=== PATIENT | male | born 1975 | race Asian ===

== ENCOUNTER 2020-07-21 20:46 | Emergency (ER) | payer MEDICAID ==
[~2020-07-21] VITALS: Ht 188 cm; Wt 122.5 kg
--- NOTE | 2020-07-21 20:49 | NUR ---
ER at bedside examining patient.
--- NOTE | 2020-07-21 20:50 | NUR ---
Patient to ER bed 2 to gown for evaluation. Side rails up, Stat EKG and place patient on precision honer and pulse ox.
--- NOTE | 2020-07-21 20:51 | NUR ---
Patient BIB by ALS/EMS. C/O Hypotension x today. Per reported, after dialysis treatmend removed 3 L, patient BP drop 64/58, Called 911, started IV NSS Bolus at the scene . A/O,X4, pale, dizziness, denies pain, on canula 2 L/min, BP 102/64, HR 72, RR 18.
[2020-07-21 20:55] VITALS: BP_SYST 135
--- NOTE | 2020-07-21 21:18 | NUR ---
Blood for labwork drawn from microbiology quality control technician. Patient tolerated well.
--- NOTE | 2020-07-21 21:20 | NUR ---
Swabs Covid-19 and MRSA and send to lab.
[2020-07-21 21:34] LABS: BASOPHILS # (AUTO) 0.1 K/uL (0.0-0.2); BASOPHILS % (AUTO) 0.8 % (0.0-2.0); EOSINOPHILS # (AUTO) 0.1 K/uL (0.0-0.4); EOSINOPHILS % (AUTO) 1.2 % (0.0-4.0); HEMOGLOBIN 11.5 g/dL (14.0-18.0); LYMPHOCYTES # (AUTO) 0.7 K/uL (1.0-5.5); LYMPHOCYTES % (AUTO) 8.1 % (20.5-51.5); MEAN CORPUSCULAR HEMOGLOBIN 29 pg (27-31); MEAN CORPUSCULAR HGB CONC 34 % (32-36); MEAN CORPUSCULAR VOLUME 87 fL (79.0-98.0); MONOCYTES # (AUTO) 0.8 K/uL (0.0-1.0); NEUTROPHILS # (AUTO) 6.8 K/uL (1.8-7.7); NEUTROPHILS % (AUTO) 80.9 % (40.0-70.0); PLATELET COUNT (AUTO) 189 K/uL (130-430); RED BLOOD CELL COUNT(AUTO) 3.93 MIL/uL (4.2-6.2); RED CELL DISTRIBUTION WIDTH 13.1 % (9.0-15.0); WHITE BLOOD COUNT (AUTO) 8.4 K/uL (4.8-10.8)
[2020-07-21] MEDS ORDERED: ACET325C5 PO (21:41)
[2020-07-21] MEDS ORDERED: CAT1PAT PO (21:41)
[2020-07-21 21:45] LABS: CREATININE 6.56 mg/dL (0.55-1.30); POTASSIUM 4.4 mmol/L (3.5-5.1)
[2020-07-21] MEDS ORDERED: PHE25 PO (21:46)
--- NOTE | 2020-07-21 21:47 | NUR ---
Medication reconciliation completed with information provided by facility. Any prior medication reconciliation on file was reviewed and corrected.
[2020-07-21 21:54] LABS: ALBUMIN 2.5 g/dL (3.4-4.8)
[2020-07-21 22:30] LABS: INR 1.1 (0.80-1.20); PROTHROMBIN TIME 11.1 SECS (9.5-12.5)
--- NOTE | 2020-07-21 23:04 | NUR ---
Dr. Omer at bedside to explain treatment plan.
--- NOTE | 2020-07-21 23:10 | NUR ---
Patient signed AMA.
--- NOTE | 2020-07-21 23:42 | NUR ---
Blood for labwork drawn from phlebotmist. Patient tolerated well.
[2020-07-22 00:25] VITALS: BP_SYST 126
--- NOTE | 2020-07-22 00:35 | NUR ---
Dr. Omer called and spoke with patient about Troponin level and recommended patient to come back to ER.
== END 2020-07-21 23:10 | disposition left against medical advice (07) ==
LOC: SED 20:46
DX: I10 Essential (primary) hypertension (principal); R77.8 Other specified abnormalities of plasma proteins; Z79.899 Other long term (current) drug therapy; Z20.828 Contact with and (suspected) exposure to other viral communicable diseases
CPT/HCPCS: 36415; 80053; 84484; 85025; 85610-TC; 85730-TC; 86886; 86900; 86901; 87081; 93005; 99291